=== PATIENT | male | born 1965 ===

== ENCOUNTER 2017-10-25 03:07 | Emergency (ER) | payer MEDICAID ==
[2017-10-25 03:36] VITALS: RESP 18
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
[2017-10-25 06:04] LABS: BASO # 0.1 K/uL (0.0-0.2); EOS % 0.2 % (0.0-4.0); HEMOGLOBIN 15.6 g/dL (12.0-18.0); LYMPH # 0.8 K/uL (1.0-4.3); MEAN CELL VOLUME 85.6 fl (80.0-94.0); MEAN CORPUSCULAR HEMOGLOBIN 28.7 pg (27.0-31.0); MEAN CORPUSCULAR HGB CONC 33.5 g/dL (33.0-37.0); MEAN PLATELET VOLUME 7.9 fl (7.2-11.7); MONO # 0.6 K/uL (0.0-0.8); NEUT # 10.1 K/uL (1.8-7.0); NEUT % 86.8 % (50.0-75.0); NRBC % 0.1 % (0.0-0.0); PLATELET COUNT 284 K/uL (130-400); RBC 5.46 Mil/uL (4.40-5.90); RED CELL DISTRIBUTION WIDTH 13.3 % (11.5-14.5); WHITE BLOOD COUNT 11.6 K/uL (4.8-10.8)
[2017-10-25 06:15] LABS: INR 0.9; PROTHROMBIN TIME 10.3 Seconds (9.8-13.1)
[2017-10-25 06:18] LABS: PARTIAL THROMBOPLASTIN TIME 33.8 Seconds (25.6-37.1)
[2017-10-25 06:33] LABS: CALCIUM 9.6 mg/dL (8.4-10.2)
[2017-10-25] MEDS ORDERED: Sodium Chloride 0.9% 1,000 ML IV STA (07:17)
[2017-10-25 07:54] VITALS: O2SAT 100
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
[2017-10-25 08:46] VITALS: BP 148/72; PULSE 106; TEMP 97.9
[2017-10-25 09:14] LABS: LYMPHOCYTE 13 % (20-50); MONOCYTE 4 % (0-10); NEUTROPHIL 83 % (42-75); PLATELET ESTIMATE NORMAL (NORMAL); TOTAL CELLS COUNTED 100
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
== END 2017-10-25 08:43 | disposition short-term general hospital (02) ==
LOC: H.ER 03:07
DX: S02.2XXA Fracture of nasal bones, initial encounter for closed fracture (principal); S02.0XXA Fracture of vault of skull, initial encounter for closed fracture; J43.9 Emphysema, unspecified; Y04.0XXA Assault by unarmed brawl or fight, initial encounter
CPT/HCPCS: 70450; 70486; 71045; 72125; 80048; 80320; 85025; 85610; 85730; 86850; 86900; 96360; 99285; J7030